=== PATIENT | male | born 1960 | race Caucasian/White ===

== ENCOUNTER 2024-11-27 10:14 | Emergency (ER) | payer MEDICARE, OTHER, SELFPAY ==
[2024-11-27 10:15] VITALS: BP 114/64; PULSE 98; RESP 20; TEMP 37; O2SAT 99; BMI 30.8
--- NOTE | 2024-11-27 10:20 | ED_ITS ---
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 Comes into the ED from home via EMS for evaluation of mechanical trip and fall. He states that he was walking in his house and tripped, states that he landed head 1st onto the floor passed out for few seconds but woke up immediately. He denies any pain except to his right forehead, patient unsure of tetanus vaccination status. At time of evaluation patient A&O x4 moving all 4 extremities spontaneously, complaining of a dull headache otherwise NIH of 0 no focal deficits. Review of Systems Review of Systems Narrative: General: Ground level fall, Denies fever, chills, weight loss HEENT: Denies headache, eye drainage, eye irritation, head trauma, sore throat, voice change Cardiovascular: Denies any chest pain, palpitations, shortness of breath, tachycardia Respiratory: Denies any shortness of breath, cough, wheeze, stridor GI/: Denies any abdominal pain, nausea, vomiting, diarrhea, bright red blood per rectum, melanotic stools, urinary frequency, urinary retention, dysuria, hematuria MSK: Denies any joint pain, muscle pains, swelling Skin: Denies any rashes, lesions, discoloration Neuro: Positive headache, denies lightheadedness, dizziness, fainting, weakness Psych: Denies SI/HI Patient History Social History Smoking Status: Never smoker Exam Narrative Exam Narrative: General: Cooperative, comfortable, well-developed, not in acute distress HEENT: L-shaped laceration not actively bleeding to the top of the right eyebrow, PERRLA, normal sclera, eyelids normal, Neck: Active full range of motion, atraumatic, there is no tenderness to palpation of the midline cervical neck no palpable step-offs Chest: Normal to inspection, negative crepitus, no overlying erythema ecchymosis Respiratory: Normal respiratory effort, not in acute respiratory distress, clear to auscultation bilaterally negative cough, wheeze, tachypnea, rhonchi, rales Cardiology: Regular rate rhythm negative gallop, murmur, rubs GI/: Normal to inspection, soft, nonrigid, no tenderness to palpation, exam deferred MSK: Patient with right-sided irdrl-fgs-qzjg amputation, patient with leg support which is his baseline, no tenderness to palpation of any bony prominences neurovascularly intact bilateral upper and lower extremities patient does have baseline paresthesias to left leg Skin: No rashes lesions noted Neuro: Alert awake oriented x3, moves all 4 extremities spontaneously, cranial nerves intact, able to answer all questions appropriately follows commands appropriately Psych: Cooperative, negative suicidal or homicidal ideations Initial Vital Signs Initial Vital Signs: Vital Signs Temperature 98.6 F 11/27/24 10:15 Pulse Rate 98 H 11/27/24 10:15 Respiratory Rate 20 11/27/24 10:15 Blood Pressure 114/64 11/27/24 10:15 Pulse Oximetry 99 11/27/24 10:15 Oxygen Delivery Method Room Air 11/27/24 10:15 Procedures Laceration Repair Laceration 1: Time of procedure: 11:51 Site: face Side (If applicable): right Size (cm): 2 Description: other (L shaped) Depth: simple, single layer Local Anesthetic: lidocaine 2% Amount of anesthesia used (mL): 2 Skin layer closed with: dermabond Course Orders Ordered: ED Orders 11/27/24 10:19 CT cervical spine wo con Stat CT head/brain wo con Stat 11/27/24 10:21 BMP [Basic Metabolic Panel] Stat CBC Auto Diff [Complete Blood Count AUTO DIFF] Stat PT [Prothrombin Time INR] Stat PTT Partial Thromboplastin Ed Stat Discontinued Medications Diphtheria/Tetanus/Acell Pertussis (Tet,Diph,Pertuss(Acell),Vac/Pf 0.5 Ml Syringe) 0.5 ml IM .ONCE ONE Stop: 11/27/24 10:20 Last Admin: 11/27/24 11:00 Dose: 0.5 ml Documented By: THUAN Lidocaine/Epinephrine (Lidocaine 2% W/Epi Inj 10 Ml Vial) 10 ml INJ NOW ONE Stop: 11/27/24 10:22 Last Admin: 11/27/24 11:00 Dose: 10 ml Documented By: THUAN Morphine Sulfate (Morphine 4 Mg/Ml Inj) 4 mg IV NOW ONE Stop: 11/27/24 10:55 Last Admin: 11/27/24 11:00 Dose: 4 mg Documented By: THUAN Ondansetron HCl (Ondansetron 4 Mg/2 Ml Inj) 4 mg IV NOW ONE Stop: 11/27/24 11:07 Last Admin: 11/27/24 11:09 Dose: 4 mg Documented By: THUAN Vital Signs Vital signs: Vital Signs - 8 hr 11/27/24 10:15 Temperature 98.6 F Pulse Rate 98 H Respiratory Rate 20 Blood Pressure 114/64 Pulse Oximetry 99 Oxygen Delivery Method Room Air MDM - Fall Differential Diagnosis Differential diagnosis: Likely other (Intracranial hemorrhage, laceration, abrasion, cervical neck fracture, closed head injury) Lab Data 11/27/24 10:21 11/27/24 10:21 Labs: Lab Results 11/27/24 Range/Units 10:21 WBC 6.3 (4.5-11.0) X10^3/uL RBC 4.23 L (4.5-5.9) X10^6/uL Hgb 13.9 (13.5-17.5) g/dL Hct 41.6 (41-53) % MCV 98.5 (80-100) fL MCH 32.9 (26-34) PG MCHC 33.5 (30-36) % RDW 14.3 (11.6-14.8) % Plt Count 266 (150-400) X10^3/uL Neut % (Auto) 64.8 (50-75) % Lymph % (Auto) 24.4 L (25-40) % [place] % (Auto) 7.2 (3-14) % Eos % (Auto) 2.3 (2-4) % Baso % (Auto) 1.3 (0-2) % Neut # (Auto) 4100 (3945-4356) /uL Lymph # (Auto) 1500 (1515-7162) /uL [place] # (Auto) 500 (0-900) /uL Eos # (Auto) 100 (0-450) /uL Baso # (Auto) 100 (0-100) /uL PT 22.3 H (9.4-12.5) SECONDS INR 2.0 H (0.9-1.3) APTT 43 H (25.1-36.5) SECONDS Sodium 138 (137-145) mmol/L Potassium 4.3 (3.4-5.1) mmol/L Chloride 102 (98-107) mmol/L Carbon Dioxide 32 (22-32) mmol/L BUN 21 H (9-20) mg/dL Creatinine 0.88 (0.66-1.25) mg/dL Estimated GFR > 60 (>60) mL/min BUN/Creatinine Ratio 23.9 H (6-22) Glucose 104 (80-110) mg/dL Calcium 9.2 (8.4-10.2) mg/dL Imaging Data CT scan - head: Radiologist's Impression: [place] [id number] CT Scan Report Signed Patient: Nicolas Stoner MR#: [id number] : 1960 Acct:[id number] Age/Sex: 64 / M Date of Service: 11/27/24 Loc: ED Accession Number: [id number] Procedure: CT head/brain wo con Ordering Provider: Shayne Tinajero D.O. PROCEDURE: CT HEAD/BRAIN WO CON INDICATIONS: Trauma, on warfarin TECHNIQUE: Noncontrast 4.5 mm thick angled axial sections acquired from the foramen magnum to the vertex, with coronal and sagittal reformats. For radiation dose reduction, the following was used: automated exposure control, adjustment of mA and/or kV according to patient size. COMPARISON: None. FINDINGS: Image quality: Diagnostic. CSF spaces: Basal cisterns are patent. No extra-axial fluid collections. The ventricles are symmetric in size and shape. Brain: No intracranial bleeds or masses. There is cerebral volume loss for age, with resultant ventricular and sulcal prominence. There are periventricular and deep white matter chronic small vessel ischemic changes. There is intracranial internal carotid artery atherosclerosis. Skull and face: Calvarium and visualized facial bones appear intact, without suspicious lesions. Sinuses: Visualized sinuses and mastoids are clear. IMPRESSION: No acute intracranial pathology. CT - cervical spine: Radiologist's Impression: [address] [address] [address] Scan Report Signed Patient: Nicolas Stoner MR#: [id number] : 1960 Acct:[id number] Age/Sex: 64 / M Date of Service: 11/27/24 Loc: ED Accession Number: [id number] Procedure: CT cervical spine wo con Ordering Provider: Shayne Tinajero D.O. PROCEDURE: CT CERVICAL SPINE WO CON INDICATIONS: trauma, on warfarin TECHNIQUE: Noncontrast 3 mm thick sections acquired from the skull base to the T4 level. Sagittal and coronal reformats were then constructed. For radiation dose reduction, the following was used: automated exposure control, adjustment of mA and/or kV according to patient size. COMPARISON: None. FINDINGS: Image quality: Excellent. Bones: No fractures or dislocations. Visualized superior ribs are intact. ACDF C3-4, C4-5, C5-6 and C6-7. Nuchal cord calcification. Soft tissues: Prevertebral soft tissues are normal in thickness. No paravertebral hematomas. No apical pneumothoraces. IMPRESSION: No displaced fracture or traumatic subluxation. MDM Narrative Medical decision making narrative: 64-year-old male with a history of factor 5 Leiden mutation on warfarin, right mxygf-esf-tyad amputation and left leg paresthesias secondary to chronic steroid injections, TBI, comes into the ED via EMS for evaluation mechanical trip and fall. States that he was walking in his house tripped landed face 1st onto the floor. Had few seconds of loss of consciousness but was able to wake up called the ambulance himself. On exam patient with an L-shaped laceration not actively bleeding to the right forehead. Patient had CT scan of head and neck, did not show any acute traumatic injury, patient did have L-shaped laceration approximately 2 cm in length fixed with Dermabond. Patient INR normal at 2.0. Patient at time of discharge re-evaluated NIH of 0 no focal deficits strict return precautions given he verbalized understanding of this and agrees to being discharged home with outpatient follow up Discharge Plan Departure Patient Disposition: Home Clinical Impression: Closed head injury, Laceration of forehead Instructions: DI for Laceration Repair-Skin Glue, DI for Closed Head Injury Activity Restrictions/Additional Instructions: Please follow-up with your primary care doctor Please read the discharge instructions sheet carefully and bring all papers to all doctor follow-up visits, as it may contain information that your doctor may want to see. Disease processes change and evolve, if your symptoms worsen or if you develop any new symptoms that are concerning to you please return for evaluation. Your evaluation today does not show any evidence of any life- threatening/serious illnesses requiring admission to the hospital or surgery. Please follow-up with your doctor for re-evaluation in approximately 1 day. Seek immediate medical attention for any worrisome symptoms. *If you do not have a primary care provider please contact the [facility] Resource line at [phone]. They will ask some questions about your medical history and help get you set up with a doctor in the community. Referrals: Fracisco Ruiz MD [Primary Care Provider] - Stand Alone Forms: Patient Portal/API/Survey
[2024-11-27 10:34] LABS: Add Manual Diff / Slide Review NO; Basophils Absolute Auto 100 /uL (0-100); Basophils Percent Auto 1.3 % (0-2); Eosinophils Absolute Auto 100 /uL (0-450); Eosinophils Percent Auto 2.3 % (2-4); Hematocrit 41.6 % (41-53); Hemoglobin 13.9 g/dL (13.5-17.5); Lymphocytes Absolute Auto 1500 /uL (1100-4500); Lymphocytes Percent Auto 24.4 % (25-40); Mean Corpuscular HGB Conc 33.5 % (30-36); Mean Corpuscular Hemoglobin 32.9 PG (26-34); Mean Corpuscular Volume 98.5 fL (80-100); Monocytes Absolute Auto 500 /uL (0-900); Monocytes Percent Auto 7.2 % (3-14); Neutrophils Absolute Auto 4100 /uL (1500-7000); Neutrophils Percent Auto 64.8 % (50-75); Platelet Count 266 X10^3/uL (150-400); Red Blood Cell Count 4.23 X10^6/uL (4.5-5.9); Red Cell Distribution Width 14.3 % (11.6-14.8); White Blood Cell Count 6.3 X10^3/uL (4.5-11.0)
[2024-11-27 10:42] LABS: Prothrombin Time 22.3 SECONDS (9.4-12.5)
[2024-11-27 10:44] LABS: PTT Partial Thromboplastin Tim 43 SECONDS (25.1-36.5)
[2024-11-27 10:45] LABS: BUN Creatinine Ratio 23.9 (6-22); Blood Urea Nitrogen 21 mg/dL (9-20); Calcium 9.2 mg/dL (8.4-10.2); Carbon Dioxide 32 mmol/L (22-32); Chloride 102 mmol/L (98-107); Estimated Glomerular Filt Rate > 60 mL/min (>60); Glucose 104 mg/dL (80-110); HEMOLYSIS 16 (0-50); Potassium 4.3 mmol/L (3.4-5.1); Sodium 138 mmol/L (137-145)
[2024-11-27] MEDS: LIDOCAINE 2% W/EPI INJ 10 ML VIAL INJ (11:00)
[2024-11-27] MEDS: TET,DIPH,PERTUSS(ACELL),VAC/PF 0.5 ML SYRINGE IM (11:00)
[2024-11-27] MEDS: MORPHINE 4 MG/ML INJ IV (11:00)
[2024-11-27] MEDS: ONDANSETRON 4 MG/2 ML INJ IV (11:09)
[2024-11-27 12:24] VITALS: BP 114/70; PULSE 60; RESP 20; TEMP 37; O2SAT 100
== END 2024-11-27 12:25 | disposition home or self-care (01) ==
PROVIDERS: Emergency Provider Student in an Organized Health Care Education/Training Program; PCP Family Medicine
DX: S06.9X1A Unspecified intracranial injury with loss of consciousness of 30 minutes or less, initial encounter (principal); S01.81XA Laceration without foreign body of other part of head, initial encounter; W01.0XXA Fall on same level from slipping, tripping and stumbling without subsequent striking against object, initial encounter; Z79.01 Long term (current) use of anticoagulants; R29.700 NIHSS score 0; Z23 Encounter for immunization
CPT/HCPCS: 70450; 72125; 80048; 85025; 85610; 85730; 90471; 96374; 96375; 99284; 90715; J2270; J2405